=== PATIENT | female | born 1970 | race Caucasian/White ===

== ENCOUNTER 2019-05-21 12:01 | Outpatient (RCR) | payer OTHER | END 2019-06-06 | LOC: OT 12:01 | PROVIDERS: ATTEND Plastic Surgery | DX: S62.615D Displaced fracture of proximal phalanx of left ring finger, subsequent encounter for fracture with routine healing (principal); M79.645 Pain in left finger(s); M25.642 Stiffness of left hand, not elsewhere classified; R53.1 Weakness ==